=== PATIENT | female | born 1940 | race Asian ===

== ENCOUNTER 2021-05-28 13:21 | Emergency (ER) | payer MEDICAID ==
[~2021-05-28] VITALS: Ht 147.3 cm; Wt 32.7 kg
[2021-05-28 13:39] VITALS: BP_SYST 142
--- NOTE | 2021-05-28 13:39 | NUR ---
Patient to ER bed 02 to gown for evaluation. Side rails up.
--- NOTE | 2021-05-28 13:40 | NUR ---
Patient was brought to ED by daughter, daughter states patient fell backwards and hit head on hard floor. Fall was not witnessed, unknown if patient had LOC. Patient Latvian speaking. Daughter denies use of blood thinners, daughter states patient had breast cancer approx 8 years ago. Posterior head cleansed with NS, small laceration noted. No active bleeding. Patient opens eyes spontaneously.
--- NOTE | 2021-05-28 13:41 | NUR ---
Placed onto monitor, vitals stable.
--- NOTE | 2021-05-28 14:04 | NUR ---
sheet metal technician at bedside drawing labs
[2021-05-28 14:20] LABS: BASOPHILS % (AUTO) 0.3 % (0.0-2.0); EOSINOPHILS % (AUTO) 0.5 % (0.0-4.0); HEMATOCRIT 36.7 % (36-48); HEMOGLOBIN 12.1 g/dL (12.0-16.0); LYMPHOCYTES # (AUTO) 0.8 K/uL (1.0-5.5); LYMPHOCYTES % (AUTO) 18.9 % (20.5-51.5); MEAN CORPUSCULAR HEMOGLOBIN 31 pg (27-31); MEAN CORPUSCULAR HGB CONC 33 % (32-36); MEAN CORPUSCULAR VOLUME 94 fL (79.0-98.0); MONOCYTES # (AUTO) 0.5 K/uL (0.0-1.0); MONOCYTES % (AUTO) 10.8 % (1.7-9.3); NEUTROPHILS # (AUTO) 2.9 K/uL (1.8-7.7); NEUTROPHILS % (AUTO) 69.5 % (40.0-70.0); PLATELET COUNT (AUTO) 153 K/uL (130-430); RED BLOOD CELL COUNT(AUTO) 3.89 MIL/uL (4.2-6.2); RED CELL DISTRIBUTION WIDTH 13.7 % (9.0-15.0); WHITE BLOOD COUNT (AUTO) 4.2 K/uL (4.8-10.8)
[2021-05-28 14:29] LABS: ANION GAP 6 (5-15); CALCIUM 8.8 mg/dL (8.4-11.0); CHLORIDE 101 mmol/L (98-107); CREATININE 0.61 mg/dL (0.55-1.30); GLUCOSE 104 mg/dL (70-99); POTASSIUM 3.9 mmol/L (3.5-5.1); SODIUM SERUM 140 mmol/L (136-145); UREA NITROGEN, BLOOD 9 mg/dL (8-21)
--- NOTE | 2021-05-28 14:30 | NUR ---
Urine collected and brought to lab
[2021-05-28 14:32] LABS: INR 1.1 (0.8-1.2)
[2021-05-28 14:37] LABS: ALANINE AMINOTRANSFERASE 30 U/L (12-78); ALBUMIN 3.3 g/dL (3.4-4.8); ASPARTATE AMINOTRANSFERASE 37 U/L (10-37); TOTAL BILIRUBIN 0.2 mg/dL (0.0-1.0)
[2021-05-28 14:45] LABS: BILIRUBIN,URINE NEGATIVE (NEGATIVE); BLOOD, URINE 2+ (NEGATIVE); CLARITY/URINE CLOUDY (CLEAR); COLOR,URINE YELLOW (YELLOW); GLUCOSE,URINE NEGATIVE (NEGATIVE); KETONES,URINE NEGATIVE (NEGATIVE); LEUKOCYTE ESTERASE ,URINE 2+ (NEGATIVE); NITRITE, URINE NEGATIVE (NEGATIVE); PH,URINE 6.5 (5.0-8.0); PROTEIN URINE NEGATIVE (NEGATIVE); UROBILINOGEN,URINE 0.2 (0.2-1.0)
[2021-05-28 14:51] LABS: BACTERIA,URINE MODERATE /HPF (None Seen)
--- NOTE | 2021-05-28 15:11 | NUR ---
at patients bedside
[2021-05-28] MEDS ORDERED: DIPH-TET-PERTUS Vaccine 0.5 ML VIAL (ADACEL) I.M. ONE (15:15)
[2021-05-28] MEDS ORDERED: cephALEXin 500 MG CAPSULE PO ONE (15:15)
[2021-05-28] MEDS ORDERED: ACETAMINOPHEN 500 MG TABLET PO ONE (15:15)
--- NOTE | 2021-05-28 16:20 | NUR ---
MD at bedside performing treatment, anna marie placed to close laceration site.
--- NOTE | 2021-05-28 16:22 | NUR ---
2 [place] placed. Patient tolerated well.
[2021-05-28] MEDS ORDERED: CEPH-548 PO ×2 (16:26→16:45)
--- NOTE | 2021-05-28 16:30 | NUR ---
Patient given written and verbal discharge instructions and verbalizes understanding. ER DR WILBERT MCLAUGHLIN MD discussed with patient the results and treatment provided. Patient in stable condition. ID arm band removed. Rx of cephalexin given. Patient educated on pain management and to follow up with PMD. Pain 3 Scale . Opportunity for questions provided and answered. Medication side effect fact sheet provided.
[2021-05-28 16:51] VITALS: BP_SYST 159
== END 2021-05-28 16:34 | disposition home or self-care (01) ==
LOC: SED 13:21
DX: S01.01XA Laceration without foreign body of scalp, initial encounter (principal); N39.0 Urinary tract infection, site not specified; Z79.899 Other long term (current) drug therapy; W18.39XA Other fall on same level, initial encounter; Y93.89 Activity, other specified; Y92.008 Other place in unspecified non-institutional (private) residence as the place of occurrence of the external cause; Y99.8 Other external cause status
CPT/HCPCS: 36415; 70450-TC; 71045; 80053; 81000; 84484; 85025; 85610-TC; 85730-TC; 87086; 90715; 93005; 99285

== ENCOUNTER 2021-06-09 09:20 | Emergency (ER) | payer MEDICAID ==
[~2021-06-09] VITALS: Ht 142.2 cm; Wt 31.8 kg
[~2021-06-09 09:20] MED LIST: CEPH-548 PO
[2021-06-09 09:30] VITALS: BP_SYST 158
--- NOTE | 2021-06-09 09:30 | NUR ---
Patient to ER bed 4 for evaluation. Side rails up. Report given to Kaylie RAMOS.
--- NOTE | 2021-06-09 09:37 | NUR ---
ASSESSED PT. PT BROUGHT IN FROM HOME BY DAUGHTER IN VEHICLE. PT VTLS ARE WNL, PT DENIES ANY PAIN PT. PT HERE TO REMOVE 2 KRYSTEN FROM HEAD THAT WERE PLACED IN 9 DAYS AGO. BED LOWERED AND LOCKED RAILS UP
[2021-06-09 09:40] VITALS: BP_SYST 158
--- NOTE | 2021-06-09 09:40 | NUR ---
DR DAWN at pt bedside. removed 2 anna marie from pt head. no bleeding
--- NOTE | 2021-06-09 09:47 | NUR ---
Patient given written and verbal discharge instructions and verbalizes understanding. ALAN Cervantes MD discussed with patient the results and treatment provided. Patient in stable condition. ID arm band removed. no active bleeding. Patient educated on pain management and to follow up with PMD. Pain Scale . Opportunity for questions provided and answered. Medication side effect fact sheet provided. [place] removed from scalp (2 anna marie)
== END 2021-06-09 09:55 | disposition home or self-care (01) ==
LOC: SED 09:20
DX: Z48.02 Encounter for removal of sutures (principal)
CPT/HCPCS: 99281

== ENCOUNTER 2023-04-26 14:51 | Emergency (ER) | payer MEDICAID ==
[~2023-04-26] VITALS: Ht 139.7 cm; Wt 34.0 kg
[2023-04-26 15:13] VITALS: BP_SYST 116; PULSE 105; RESP 18; TEMP 97.7; O2SAT 96
[2023-04-26] MEDS ORDERED: AZIT-93 PO (17:16)
[2023-04-26] MEDS ORDERED: ACET-2634 PO (17:16)
[2023-04-26] MEDS ORDERED: GUAI5SYR PO (17:16)
[2023-04-26 18:01] LABS: COVID19 ANTIGEN SOFIA FIA NEGATIVE (NEGATIVE)
[2023-04-26 18:02] LABS: INFLUENZA TYPE A Negative (NEGATIVE); INFLUENZA TYPE B NEGATIVE (NEGATIVE)
[2023-04-26 18:19] VITALS: BP_SYST 104; PULSE 85; RESP 18; TEMP 97.5; O2SAT 96
== END 2023-04-26 18:19 | disposition home or self-care (01) ==
LOC: SED 14:51
DX: J18.1 Lobar pneumonia, unspecified organism (principal); R05.9 Cough, unspecified; Z88.0 Allergy status to penicillin; Z85.3 Personal history of malignant neoplasm of breast; Z79.899 Other long term (current) drug therapy; Z20.822 Contact with and (suspected) exposure to COVID-19
CPT/HCPCS: 36415; 71045; 99284